=== PATIENT | female | born 1970 | race Caucasian/White ===

== ENCOUNTER 2020-08-30 10:13 | Emergency (ER) | payer OTHER ==
[~2020-08-30] VITALS: Ht 167 cm; Wt 83.4 kg
[~2020-08-30 10:13] MED LIST: AMLO5TAB2 PO; CLN.1TRX PO; ESTR0.5T PO; ESTR2TAB PO; HYDR25TA4 PO; HYOS0.1296 SL; LEVO500T69 PO; LORA0.5T PO; LORA1TAB PO; METO25TA PO; METR500T PO; MTP50T PO; OLME20TA21 PO; ONDN4T PO
[2020-08-30] MEDS ORDERED: ASPIRIN 81 MG CHEW (CHILDREN'S ASA) PO ONE (10:30)
[2020-08-30] MEDS ORDERED: NITROGLYCERIN 0.4 MG SL TABS BTL 25'S SL PRN (10:30)
[2020-08-30 10:42] LABS: BASOPHILS % (AUTO) 1 % (0-10); EOSINOPHILS # (AUTO) 0.1 10^3/uL (0.0-0.3); EOSINOPHILS % (AUTO) 1 % (0-10); HEMATOCRIT 37 % (35-52); HEMOGLOBIN 12.3 g/dL (11.5-16.0); LYMPHOCYTES # (AUTO) 2.8 10^3/uL (1.0-4.0); LYMPHOCYTES % (AUTO) 50 % (12-44); MEAN CORPUSCULAR HEMOGLOBIN 30 pg (25-34); MEAN CORPUSCULAR HGB CONC 34 g/dL (32-36); MEAN CORPUSCULAR VOLUME 91 fL (80-99); MEAN PLATELET VOLUME 10.1 fL (9.0-12.2); MONOCYTES # (AUTO) 0.5 10^3/uL (0.0-1.0); MONOCYTES % (AUTO) 8 % (0-12); NEUTROPHILS # (AUTO) 2.3 10^3/uL (1.8-7.8); NEUTROPHILS % (AUTO) 40 % (42-75); PLATELET COUNT 242 10^3/uL (130-400); WHITE BLOOD COUNT 5.7 10^3/uL (4.3-11.0)
--- NOTE | 2020-08-30 10:50 | Diagnostic Imaging Report ---
Indication: Chest pain and left arm numbness. Time of Exam: 10:48 AM Comparison is made with prior chest 05/22/2012. The heart size is normal. The pulmonary vascularity is unremarkable. The lungs are clear. No infiltrate, effusion or pneumothorax is detected. Impression: No acute cardiopulmonary process is detected. Dictated by: Dictated on workstation # [id number]
[2020-08-30 10:53] LABS: INR 0.9 (0.8-1.4); PROTHROMBIN TIME PATIENT 12.2 SEC (12.2-14.7)
[2020-08-30 10:54] LABS: ALBUMIN 4.3 GM/DL (3.2-4.5); CHLORIDE 107 MMOL/L (98-107); POTASSIUM 3.8 MMOL/L (3.6-5.0); SODIUM 140 MMOL/L (135-145)
[2020-08-30 10:55] LABS: CALCIUM 8.9 MG/DL (8.5-10.1)
[2020-08-30 10:56] LABS: GLUCOSE 87 MG/DL (70-105)
[2020-08-30 10:57] LABS: TOTAL PROTEIN 7.3 GM/DL (6.4-8.2)
[2020-08-30 10:58] LABS: CARBON DIOXIDE 24 MMOL/L (21-32)
[2020-08-30 10:59] LABS: BILIRUBIN,TOTAL 0.5 MG/DL (0.1-1.0)
[2020-08-30 11:00] LABS: ALKALINE PHOSPHATASE 67 U/L (40-136); CREATININE SERUM 0.72 MG/DL (0.60-1.30); GFR ESTIMATED > 60
[2020-08-30 11:01] LABS: BUN/CREATININE RATIO 17
[2020-08-30 11:03] LABS: ALANINE AMINOTRANSFERASE 59 U/L (0-55)
[2020-08-30 11:58] LABS: FREE T4 (FREE THYROXINE) 0.76 NG/DL (0.70-1.48)
--- NOTE | 2020-08-30 14:01 | ED Chest Pain ---
General Chief Complaint: Chest Pain Stated Complaint: CP, L ARM NUMBNESS, HEARTBURN Nursing Triage Note: PT PRESENTS TO ED WITH COMPLAINTS OF L ARM PAIN AND NUMBNESS X 3 WEEKS. PT REPORTS INTERMITTENT L SIDED CP STARTING THIS WEEK. Nursing Sepsis Screen: No Definite Risk Source: patient Exam Limitations: no limitations History of Present Illness Date Seen by Provider: Aug 30, 2020 Time Seen by Provider: 10:23 Initial Comments This 49-year-old woman presents to the emergency room with fairly persistent chest pain since last night. She reports it was severe last night and today she rates it at 5/10. There is a pain in her central chest but she also has a pain radiating up into her left neck by her ear. She also has numbness and tingling down her arm and into her third and fourth left finger. The pain in the chest and symptoms in the arm are not necessarily correlated timewise. She denies any known cardiac history. She had a clean stress test in 2011. She is a former smoker who quit in 2009. She reports her pain is notably worse when lying down but otherwise she notices no exacerbating or alleviating factors. She is noted to be significantly hypertensive on arrival and emotionally distraught. Allergies and Home Medications Allergies Coded Allergies: bupropion (Unverified Allergy, Unknown, 09/15/06) codeine (Unverified Allergy, Unknown, 09/15/06) latex (Unverified Adverse Reaction, Intermediate, hives, 09/15/13) morphine (Unverified Adverse Reaction, Intermediate, n/v, 09/15/13) meperidine (Unverified Adverse Reaction, Mild, MAKES HER SICK TO HER STOMACH, HAS RECEIVED FENTANYL, 05/31/15) Home Medications Benicar Hct 20 Mg Tablet, 20 MG PO DAILY, (Reported) Estradiol 2 Mg Tablet, 2 MG PO DAILY, (Reported) Hydrochlorothiazide Unknown Strength Tablet, 25 MG PO DAILY, (Reported) Lorazepam 1 Mg Tablet, 1 MG PO TID PRN PRN for ANXIETY, (Reported) Patient Home Medication List Home Medication List Reviewed: Yes Review of Systems Review of Systems Constitutional: no symptoms reported EENTM: No Symptoms Reported Respiratory: No Symptoms Reported Cardiovascular: See HPI Gastrointestinal: No Symptoms Reported Genitourinary: No Symptoms Reported Musculoskeletal: no symptoms reported Skin: no symptoms reported Psychiatric/Neurological: See HPI Endocrine: No Symptoms Reported Hematologic/Lymphatic: No Symptoms Reported Past Ifycusr-Jzwbea-Zlsqkl Hx Past Med/Social Hx: Reviewed Nursing Past Med/Soc Hx Patient Social History Alcohol Use: Denies 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) Smoking Status: Former Smoker Former Smoker, Quit: Aug 21, 2010 Recent Foreign Travel: No Contact w/Someone Who Travel: No Recent Infectious Disease Expo: No Physical Abuse: No Sexual Abuse: No Mistreated: No Fear: No Immunizations Up To Date Tetanus Booster (TDap): Unknown Seasonal Allergies Seasonal Allergies: Yes Past Medical History Surgeries: Yes (colonoscopy 2012 , l knee scope) Gallbladder, Hysterectomy, Orthopedic Respiratory: No Cardiac: Yes Hypertension 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 oz. 70.515629dh; 29.00 BMI Method:Stated General Appearance: WD/WN, Anxious HEENT: PERRL/EOMI, Normal ENT Inspection Neck: Normal Inspection Respiratory: Chest Non Tender, Lungs Clear, Normal Breath Sounds, No Accessory Muscle Use, No Respiratory Distress Cardiovascular: Regular Rate, Rhythm, No Edema, No Murmur, Normal Peripheral Pulses Gastrointestinal: Normal Bowel Sounds, Non Tender, Soft Extremity: Normal Inspection, Non Tender, No Calf Tenderness, No Pedal Edema Neurologic/Psychiatric: Alert, Oriented x3, No Motor/Sensory Deficits, community development director II- XII Norm as Tested, Other (anxious) Skin: Normal Color, Warm/Dry Progress/Results/Core Measures Results/Orders Lab Results Laboratory Tests Test 08/30/20 10:32 08/30/20 12:31 08/30/20 16:19 Range/Units White Blood Count 5.7 4.3-11.0 10^3/uL Red Blood Count 4.04 3.80-5.11 10^6/uL Hemoglobin 12.3 11.5-16.0 g/dL Hematocrit 37 35-52 % Mean Corpuscular Volume 91 80-99 fL Mean Corpuscular Hemoglobin 30 25-34 pg Mean Corpuscular Hemoglobin Concent 34 32-36 g/dL Red Cell Distribution Width 12.2 10.0-14.5 % Platelet Count 242 130-400 10^3/uL Mean Platelet Volume 10.1 9.0-12.2 fL Immature Granulocyte % (Auto) 0 % Neutrophils (%) (Auto) 40 L 42-75 % Lymphocytes (%) (Auto) 50 H 12-44 % Monocytes (%) (Auto) 8 0-12 % Eosinophils (%) (Auto) 1 0-10 % Basophils (%) (Auto) 1 0-10 % Neutrophils # (Auto) 2.3 1.8-7.8 10^3/uL Lymphocytes # (Auto) 2.8 1.0-4.0 10^3/uL Monocytes # (Auto) 0.5 0.0-1.0 10^3/uL Eosinophils # (Auto) 0.1 0.0-0.3 10^3/uL Basophils # (Auto) 0.0 0.0-0.1 10^3/uL Immature Granulocyte # (Auto) 0.0 0.0-0.1 10^3/uL Prothrombin Time 12.2 12.2-14.7 SEC INR Comment 0.9 0.8-1.4 Activated Partial Thromboplast Time 32 24-35 SEC Sodium Level 140 135-145 MMOL/L Potassium Level 3.8 3.6-5.0 MMOL/L Chloride Level 107 98-107 MMOL/L Carbon Dioxide Level 24 21-32 MMOL/L Anion Gap 9 5-14 MMOL/L Blood Urea Nitrogen 12 7-18 MG/DL Creatinine 0.72 0.60-1.30 MG/DL Estimat Glomerular Filtration Rate > 60 BUN/Creatinine Ratio 17 Glucose Level 87 70-105 MG/DL Calcium Level 8.9 8.5-10.1 MG/DL Corrected Calcium 8.7 8.5-10.1 MG/DL Magnesium Level 2.0 1.6-2.4 MG/DL Total Bilirubin 0.5 0.1-1.0 MG/DL Aspartate Amino Transf (AST/SGOT) 39 H 5-34 U/L Alanine Aminotransferase (ALT/SGPT) 59 H 0-55 U/L Alkaline Phosphatase 67 40-136 U/L Myoglobin 24.8 10.0-92.0 NG/ML Troponin I < 0.028 < 0.028 < 0.028 <0.028 NG/ML Total Protein 7.3 6.4-8.2 GM/DL Albumin 4.3 3.2-4.5 GM/DL Thyroid Stimulating Hormone (TSH) 2.14 0.35-4.94 UIU/ML Free Thyroxine 0.76 0.70-1.48 NG/DL My Orders Orders - LOBITO MARQUEZ MD Cbc With Automated Diff (08/30/20 10:23) Magnesium (08/30/20 10:23) Chest 1 View, Ap/Pa Only (08/30/20 10:23) Ekg Tracing (08/30/20 10:23) Comprehensive Metabolic Panel (08/30/20 10:23) Myoglobin Serum (08/30/20 10:23) Protime With Inr (08/30/20 10:23) Partial Thromboplastin Time (08/30/20 10:23) O2 (08/30/20 10:23) Monitor-Rhythm Ecg Trace Only (08/30/20 10:23) Ed Iv/Invasive Line Start (08/30/20 10:23) Troponin I (08/30/20 10:23) Nitroglycerin 0.4 Mg Btl 25's (Nitrostat (08/30/20 10:30) Aspirin Chewable Tablet (Baby Aspirin Ch (08/30/20 10:30) Troponin I (08/30/20 12:30) Thyroid Stimulating Hormone (08/30/20 11:24) Free T4 (Free Thyroxine) (08/30/20 11:24) Troponin I (08/30/20 16:30) Lidocaine 2% Viscous 15 Ml (Xylocaine Vi (08/30/20 14:30) Antacid Suspension (Mylanta Suspension (08/30/20 14:30) Famotidine Injection (Pepcid Injection) (08/30/20 14:21) Ondansetron Injection (Zofran Injectio (08/30/20 14:30) Ketorolac Injection (Toradol Injection) (08/30/20 16:15) Medications Given in ED Current Medications Medications Dose Ordered Sig/Natali Route Start Time Stop Time Status Last Admin Dose Admin Al Hydrox/Mg Hydrox/Simethicone 30 ml ONCE ONCE PO 08/30/20 14:30 08/30/20 14:31 DC 08/30/20 14:28 30 ML Aspirin 81 mg ONCE ONCE PO 08/30/20 10:30 08/30/20 10:31 DC 08/30/20 10:50 81 MG Ketorolac Tromethamine 15 mg ONCE ONCE IVP 08/30/20 16:15 08/30/20 16:16 DC 08/30/20 16:17 15 MG Lidocaine HCl 15 ml ONCE ONCE PO 08/30/20 14:30 08/30/20 14:31 DC 08/30/20 14:27 15 ML Nitroglycerin 0.4 mg UD PRN SL 08/30/20 10:30 08/30/20 17:34 DC 08/30/20 10:51 0.4 MG Ondansetron HCl 4 mg ONCE ONCE IVP 08/30/20 14:30 08/30/20 14:31 DC 08/30/20 14:28 4 MG Vital Signs/I&O 08/30/20 08/30/20 08/30/20 10:19 10:19 17:34 Temp 36.8 Pulse 90 66 Resp 18 20 B/P (MAP) 183/103 (129) 153/88 Pulse Ox 97 98 O2 Delivery Room Air Blood Pressure Mean: 129 Progress Progress Note #1: Time: 14:01 Progress Note initial cardiac workup was negative. 2 hour troponin was also normal. Patient did have one bout of recurrent pain during the 2 hour interval. I discussed the situation with Dr. Fields. He recommended doing a 6 hour troponin and discharging if free of pain and a 6 hour troponin negative. He suggested treating for possible GI etiology. Patient was given a GI cocktail, Zofran, and Pepcid. Progress Note #2: Progress Note The third troponin was negative and patient's pain did not return. She was d ischarged home to complete her workup as an outpatient. See discharge instructions. I explained to her that her symptoms may actually be caused by multiple etiologies. For example chest pain may be caused by angina or esophagitis. Left arm pain and numbness could be caused by cervical radiculopathy. Initial ECG Impression Date: Aug 30, 2020 Initial ECG Impression Time: 10:12 Initial ECG Rate: 94 Initial ECG Rhythm: Normal Sinus Initial ECG Intervals: Normal Initial ECG Impression: Normal Comment Normal sinus rhythm with no ST elevation or depression. No abnormal intervals or axis deviation. Diagnostic Imaging Diagonstic Imaging: Xray Plain Films/CT/US/NM/MRI: chest Comments Chest x-ray reviewed by me and report reviewed. See report below: NAME: HIMANSHU CUEVAS [facility] REC#: [id number] PT STATUS: REG ER : 1970 PHYSICIAN: LOBITO MARQUEZ MD ADMIT DATE: 08/30/20/ER Signed Date of Exam:08/30/20 CHEST 1 VIEW, AP/PA ONLY Indication: Chest pain and left arm numbness. Time of Exam: 10:48 AM Comparison is made with prior chest 05/22/2012. The heart size is normal. The pulmonary vascularity is unremarkable. The lungs are clear. No infiltrate, effusion or pneumothorax is detected. Impression: No acute cardiopulmonary process is detected. Dictated by: Dictated on workstation # [id number] Dict: 08/30/20 1046 Trans: 08/30/20 1552 [facility] [id number] Interpreted by: BRAYDON CHONG MD Electronically signed by: BRAYDON CHONG MD 08/30/20 1552 Departure Impression Primary Impression: Chest pain Qualified Codes: R07.9 - Chest pain, unspecified Additional Impression: Paresthesia of left arm Disposition: 01 HOME, SELF-CARE Condition: Improved Departure-Patient Inst. Decision time for Depature: 17:26 Referrals: [facility] (PCP) Primary Care Physician JUDY EATON APRN (Family) Primary Care Physician STEPHANIE FIELDS MD FACP [facility] Patient Instructions: Paresthesia (DC), Chest Pain Add. Discharge Instructions: Take aspirin 81 mg daily. Take an antacid [id number] such as omeprazole 20 mg twice daily or Pepcid (famotidine) 20 mg twice daily. Follow-up with a primary care provider soon as possible. Also follow-up with Dr. Fields or a digital sales representative of your choice as soon as possible. The numbness going down your left arm and hand may be related to a nerve issue from the neck. Please discuss this with your primary care provider. Further evaluation such as MRI of the neck may be necessary. Return to the emergency room if you have worsening symptoms. All discharge instructions reviewed with patient and/or family. Voiced understanding. Copy Copies To 1: RENE BAÑUELOS DO Copies To 2: STEPHANIE FIELDS MD FACP [facility] LOBITO MARQUEZ MD Aug 30, 2020 14:01
[2020-08-30] MEDS ORDERED: FAMOTIDINE 20MG/2ML IV (PEPCID) IV STA (14:21)
[2020-08-30] MEDS ORDERED: ANTACID SUSP 30 ML UDC (MYLANTA) PO ONE (14:30)
[2020-08-30] MEDS ORDERED: ONDANSETRON 4 MG/2 ML (SDV) Z0FRAN IVP ONE (14:30)
[2020-08-30] MEDS ORDERED: LIDOCAINE 2% VISCOUS 15 ML UDC PO ONE (14:30)
[2020-08-30] MEDS ORDERED: KETOROLAC 30 MG/ML VIAL IVP ONE (16:15)
[2020-08-30 17:34] VITALS: BP 153/88
== END 2020-08-30 17:34 | disposition home or self-care (01) ==
LOC: EDUNIT# 10:13 → ER 10:15
DX: R07.9 Chest pain, unspecified (principal); R20.2 Paresthesia of skin; F41.9 Anxiety disorder, unspecified; I10 Essential (primary) hypertension; Z80.9 Family history of malignant neoplasm, unspecified; Z87.891 Personal history of nicotine dependence; Z91.041 Radiographic dye allergy status; Z88.5 Allergy status to narcotic agent; Z88.8 Allergy status to other drugs, medicaments and biological substances
CPT/HCPCS: 36415; 71045; 80053; 83735; 83874; 84439; 84443; 84484; 85025; 85610; 85730; 93041